=== PATIENT | female | born 1980 | race Two or more races ===

== ENCOUNTER 2018-12-31 06:00 | Emergency (ER) | payer MEDICAID, OTHER ==
[~2018-12-31] VITALS: Ht 154.9 cm; Wt 72.6 kg
[2018-12-31] MEDS ORDERED: SODIUM CHLORIDE 0.9% 1,000 ML IV ONE (06:53)
[2018-12-31 08:00] LABS: Basophils # (auto) 0.1 uL; Basophils % (auto) 1.1 % (0.0-2.0); Eosinophils # (auto) 0 uL; Eosinophils % (auto) 0.4 % (0.0-7.0); Hematocrit 52.7 % (36.0-46.0); Hemoglobin 17.5 g/dL (12.2-16.2); Lymphocytes # (auto) 1.8 uL; Lymphocytes % (auto) 25.2 % (10.0-50.0); Mean Corpuscular Hemoglobin 31.5 pg (28.0-32.0); Mean Corpuscular Hgb Conc. 33.1 g/dL (32.0-36.0); Mean Corpuscular Volume 95.2 fL (80.0-100.0); Monocytes # (auto) 0.5 uL; Monocytes % (auto) 7.5 % (0.0-12.0); Neutrophils # (auto) 4.7 uL; Neutrophils % (auto) 65.8 % (37.0-80.0); Nucleated Red Blood Cells % 0.1 %; Platelet Count (auto) 122 10^3/uL (140-450); Red Blood Cells 5.54 10^6/uL (4.0-5.20); Red Cell Distribution Width 14.7 % (11.8-14.3); White Blood Cell 7.1 10^3/uL (4.4-10.8)
[2018-12-31 08:04] LABS: INR 1.2 (0.9-1.15); Partial Thromboplastin Time 26.7 sec (23.64-32.05)
[2018-12-31 08:21] LABS: Albumin 2.5 g/dL (3.4-5.0); Calcium 8.4 mg/dL (8.5-10.1); Magnesium 2.1 mg/dL (1.6-2.6); Potassium 3.7 mmol/L (3.5-5.1)
[2018-12-31 08:24] LABS: BUN/Creatinine Ratio 21.3; Bilirubin, Total 1.2 mg/dL (0.2-1.0); Total Protein 6.3 g/dL (6.4-8.2)
[2018-12-31 11:01] VITALS: BP 162/99
== END 2018-12-31 10:59 | disposition home or self-care (01) ==
LOC: EDBD 06:00 → ER 06:00
DX: R04.0 Epistaxis (principal); I10 Essential (primary) hypertension; E46 Unspecified protein-calorie malnutrition; D68.9 Coagulation defect, unspecified; R94.5 Abnormal results of liver function studies; E78.5 Hyperlipidemia, unspecified
CPT/HCPCS: 30901; 36415; 80053; 83735; 83880; 84702; 85025; 85610; 85730

== ENCOUNTER 2019-01-04 10:03 | Emergency (ER) | payer MEDICAID ==
[~2019-01-04] VITALS: Ht 162.6 cm; Wt 72.6 kg
[2019-01-04 10:33] LABS: Eosinophils # (auto) 0 uL; Monocytes # (auto) 0.5 uL
[2019-01-04 10:34] LABS: Basophils # (auto) 0 uL; Basophils % (auto) 0.8 % (0.0-2.0); Eosinophils % (auto) 0.7 % (0.0-7.0); Hematocrit 52.2 % (36.0-46.0); Hemoglobin 17.6 g/dL (12.2-16.2); Lymphocytes # (auto) 1.4 uL; Lymphocytes % (auto) 24.4 % (10.0-50.0); Mean Corpuscular Hgb Conc. 33.7 g/dL (32.0-36.0); Mean Corpuscular Volume 94.8 fL (80.0-100.0); Monocytes % (auto) 9.1 % (0.0-12.0); Neutrophils # (auto) 3.8 uL; Nucleated Red Blood Cells % 0.1 %; Platelet Count (auto) 119 10^3/uL (140-450); Red Blood Cells 5.51 10^6/uL (4.0-5.20); White Blood Cell 5.9 10^3/uL (4.4-10.8)
[2019-01-04 10:48] LABS: INR 1.19 (0.9-1.15); Partial Thromboplastin Time 27.1 sec (23.64-32.05)
[2019-01-04 10:53] LABS: Albumin 2.7 g/dL (3.4-5.0); Calcium 8.9 mg/dL (8.5-10.1); Potassium 3.5 mmol/L (3.5-5.1)
[2019-01-04 10:56] LABS: BUN/Creatinine Ratio 13.8; Bilirubin, Total 1.3 mg/dL (0.2-1.0); Total Protein 6.6 g/dL (6.4-8.2)
[2019-01-04] MEDS ORDERED: cloNIDine HCL 0.1 MG TAB PO ONE (12:15)
[2019-01-04] MEDS ORDERED: SODIUM CHLORIDE 0.9% 500 ML IV ONE (12:45)
[2019-01-04 14:58] VITALS: BP 125/95
[2019-01-04] MEDS ORDERED: NEOMYCIN-BACITRACIN-POLYM UNITDOSE PKG TOP OINT TOP ONE (15:45)
== END 2019-01-04 16:36 | disposition home or self-care (01) ==
LOC: EDBD 10:03 → ER 10:10
DX: R04.0 Epistaxis (principal); I11.0 Hypertensive heart disease with heart failure; I50.9 Heart failure, unspecified; E78.00 Pure hypercholesterolemia, unspecified
CPT/HCPCS: 30901; 36415; 80053; 85025; 85610; 85730; 94761

== ENCOUNTER 2021-02-11 13:43 | Inpatient (IN) | payer MEDICAID ==
[~2021-02-11] VITALS: Ht 152.4 cm; Wt 83.0 kg
[2021-02-11 15:24] LABS: Basophils # (auto) 0 10 ^3/uL (0-0.2); Basophils % (auto) 0.4 % (0.0-2.0); Eosinophils # (auto) 0.2 10 ^3/uL (0-0.8); Eosinophils % (auto) 2.1 % (0.0-7.0); Hematocrit 40.6 % (36.0-46.0); Hemoglobin 14.1 g/dL (12.2-16.2); Lymphocytes # (auto) 1.5 10 ^3/uL (0.4-5.4); Lymphocytes % (auto) 20.1 % (10.0-50.0); Mean Corpuscular Hemoglobin 31.6 pg (28.0-32.0); Mean Corpuscular Hgb Conc. 34.6 g/dL (32.0-36.0); Mean Corpuscular Volume 91.4 fL (80.0-100.0); Monocytes # (auto) 0.6 10 ^3/uL (0-1.3); Monocytes % (auto) 8.1 % (0.0-12.0); Neutrophils # (auto) 5.2 10 ^3/uL (1.6-8.6); Neutrophils % (auto) 69.3 % (37.0-80.0); Nucleated Red Blood Cells % 0.1 %; Red Blood Cells 4.44 10^6/uL (4.0-5.20); Red Cell Distribution Width 12.4 % (11.8-14.3); White Blood Cell 7.4 10^3/uL (4.4-10.8)
[2021-02-11 15:42] LABS: Albumin 3.9 g/dL (3.4-5.0); Potassium 3.6 mmol/L (3.5-5.1)
[2021-02-11 15:47] LABS: BUN/Creatinine Ratio 16.2; Bilirubin, Total 0.7 mg/dL (0.2-1.0)
[2021-02-11] MEDS ORDERED: cefTRIAXone 1GM/50ML D5W 50 ML IV ONE (16:15)
[2021-02-11 17:02] LABS: Urine Blood Negative /uL (Negative); Urine Specific Gravity 1.027 (1.001-1.035); Urine WBC 2 /hpf (0 - 5)
[2021-02-11 17:03] LABS: Urine Bacteria FEW /hpf (None Seen); Urine Mucus FEW (None Seen)
[2021-02-11] MEDS ORDERED: TETANUS-DIPTH-ACEL PERTUSSIS 0.5ML SYR Tdap IM ONE (19:15)
[2021-02-11] MEDS ORDERED: MORPHINE SULF INJ 2 MG/ML SYRINGE 1ML IV PRN ×2 (20:00)
[2021-02-11] MEDS ORDERED: NITROGLYCERIN 0.4 MG SL TAB SL PRN (20:00)
[2021-02-11] MEDS ORDERED: DOCUSATE SOD 100 MG CAP PO PRN (20:00)
[2021-02-11] MEDS ORDERED: ACETAMINOPHEN 500 MG TAB PO PRN (20:00)
[2021-02-11] MEDS: SILDENAFIL CITRATE 20 MG TAB PO SCH (20:17)
[2021-02-11] MEDS: ONDANSETRON HCL 4 MG/2 ML VIAL IV PRN (20:18)
[2021-02-11] MEDS: CLINDAMYCIN 300MG IV 50 ML IV SCH (22:00)
[2021-02-11] MEDS: ATORVASTATIN 20 MG TAB PO SCH (22:00)
[2021-02-11 23:05] VITALS: BP 93/51
[2021-02-11] MEDS: HYDROcodone-ACET 5/325MG TAB PO PRN (23:52)
[2021-02-11] MEDS ORDERED: HYDROcodone-ACET 5/325MG TAB ONE (23:52)
[2021-02-12] MEDS ORDERED: LISI20TA28 PO (02:27)
[2021-02-12] MEDS ORDERED: ATOR20TA PO (02:27)
[2021-02-12] MEDS ORDERED: DIGO0.12 PO (02:27)
[2021-02-12] MEDS ORDERED: SPIR25TA8 PO (02:30)
[2021-02-12] MEDS ORDERED: MACI1TAB2 PO (02:30)
[2021-02-12] MEDS ORDERED: DILT30TA PO (02:30)
[2021-02-12] MEDS ORDERED: SILD10SU PO (02:30)
[2021-02-12] MEDS ORDERED: DIPH2.5T73 PO (02:30)
[2021-02-12 05:00] VITALS: BP 93/53
[2021-02-12] MEDS ORDERED: CLINDAMYCIN 300MG IV 50 ML IV ONE (06:45)
[2021-02-12] MEDS: CLINDAMYCIN 300MG IV 50 ML IV SCH ×3 (06:46→21:25)
[2021-02-12 09:00] VITALS: BP 93/48
[2021-02-12] MEDS: SILDENAFIL CITRATE 20 MG TAB PO SCH ×3 (09:30→20:18)
[2021-02-12] MEDS: SPIRONOLACTONE 25 MG TAB PO SCH (09:30)
[2021-02-12] MEDS: cefTRIAXone 1GM/50ML D5W 50 ML IV SCH (09:30)
[2021-02-12 13:00] VITALS: BP 115/72
[2021-02-12 17:00] VITALS: BP 84/48
[2021-02-12] MEDS: ATORVASTATIN 20 MG TAB PO SCH (21:25)
[2021-02-12 22:00] VITALS: BP 98/63
[2021-02-13 05:00] VITALS: BP 113/66
[2021-02-13] MEDS: CLINDAMYCIN 300MG IV 50 ML IV SCH ×3 (06:31→22:58)
[2021-02-13] MEDS: HYDROcodone-ACET 5/325MG TAB PO PRN (06:41)
[2021-02-13 08:59] VITALS: BP 101/68
[2021-02-13] MEDS: SPIRONOLACTONE 25 MG TAB PO SCH (09:12)
[2021-02-13] MEDS: SILDENAFIL CITRATE 20 MG TAB PO SCH ×3 (09:12→19:52)
[2021-02-13] MEDS: cefTRIAXone 1GM/50ML D5W 50 ML IV SCH (09:13)
[2021-02-13] MEDS: ONDANSETRON HCL 4 MG/2 ML VIAL IV PRN (11:38)
[2021-02-13 13:00] VITALS: BP 116/69
[2021-02-13 16:30] VITALS: BP 120/70
[2021-02-13 22:00] VITALS: BP 103/74
[2021-02-13] MEDS: ATORVASTATIN 20 MG TAB PO SCH (22:58)
[2021-02-14 05:00] VITALS: BP 126/80
[2021-02-14] MEDS: CLINDAMYCIN 300MG IV 50 ML IV SCH (06:14)
[2021-02-14] MEDS: SILDENAFIL CITRATE 20 MG TAB PO SCH (08:50)
[2021-02-14] MEDS: SPIRONOLACTONE 25 MG TAB PO SCH (08:51)
[2021-02-14] MEDS: cefTRIAXone 1GM/50ML D5W 50 ML IV SCH (08:51)
[2021-02-14 09:00] VITALS: BP 100/81
[2021-02-14 11:59] VITALS: BP 115/66
[2021-02-14 13:01] VITALS: BP 15/66
== END 2021-02-14 13:30 | disposition home or self-care (01) | DRG 383 ==
LOC: ER 13:43 → TELE-WESTW 19:47 → ER 23:02
PROVIDERS: ADMIT Nurse Practitioner Acute Care; ATTEND Family Medicine
PROC: 3E0234Z Introduction of Serum, Toxoid and Vaccine into Muscle, Percutaneous Approach (ICD-10-PCS; principal; 2021-02-11)
DX: L03.311 Cellulitis of abdominal wall (principal); I27.29 Other secondary pulmonary hypertension; I50.810 Right heart failure, unspecified; I11.0 Hypertensive heart disease with heart failure; Z20.822 Contact with and (suspected) exposure to COVID-19; N20.0 Calculus of kidney; E78.00 Pure hypercholesterolemia, unspecified; E78.5 Hyperlipidemia, unspecified; E66.9 Obesity, unspecified; Z23 Encounter for immunization; Z79.899 Other long term (current) drug therapy; Z82.49 Family history of ischemic heart disease and other diseases of the circulatory system; Z98.51 Tubal ligation status; Z68.31 Body mass index [BMI] 31.0-31.9, adult
CPT/HCPCS: 36415; 71045; 74176; 80053; 81001; 83605; 83735; 83880; 84702; 85025; 87040; 87426; 90471; 90715; 96365; 96366; 96375; G0378; J0696; J2405; J3490